=== PATIENT | male | born 1975 | race Caucasian/White ===

== ENCOUNTER 2017-06-01 13:54 | Emergency (ER) | payer SELFPAY ==
[2017-06-01 14:53] VITALS: BP 113/73
[2017-06-01 15:50] LABS: Basophils % (Auto) 0.7 % (0.0-1.8); Eosinophils % (Auto) 2.6 % (0.0-4.3); Hematocrit 43.5 % (35.5-45.6); Hemoglobin 14.9 gm/dl (11.8-15.2); Mean Corpuscular HGB Conc 34 % (32-34); Mean Corpuscular Hemoglobin 33 pg (28-32); Mean Corpuscular Volume 97 fl (84-94); Platelet Count 238 K/mm3 (140-440); Red Blood Count 4.46 M/mm3 (3.65-5.03); Red Cell Distribution Width 13.2 % (13.2-15.2); White Blood Count 9.6 K/mm3 (4.5-11.0)
[2017-06-01 16:01] LABS: Alanine Aminotransferase 14 units/L (7-56); Albumin 4.2 g/dL (3.9-5); Albumin/Globulin Ratio 1.6 %; Alkaline Phosphatase 55 units/L (35-129); Anion Gap 15 mmol/L; BUN/Creatinine Ratio 7.69; Blood Urea Nitrogen 10 mg/dL (9-20); Calcium 8.9 mg/dL (8.4-10.2); Carbon Dioxide 26 mmol/L (22-30); Chloride 106.7 mmol/L (98-107); Glucose 68 mg/dL (75-100); Lipase 19 units/L (13-60); Potassium 4.8 mmol/L (3.6-5.0); Sodium 143 mmol/L (137-145); Total Protein 6.8 g/dL (6.3-8.2)
[2017-06-01 18:14] LABS: Bilirubin,Urine NEG (Negative); Blood,Urine NEG (Negative); Ketones,Urine NEG (Negative); Leukocyte Esterase,Urine NEG (Negative); Mucus,Urine FEW /HPF; Nitrite,Urine NEG (Negative); Protein,Urine <15 mg/dL mg/dL (Negative); Urobilinogen,Urine < 2.0 mg/dL (<2.0)
--- NOTE | 2017-06-03 11:00 | ED Elopement Review ---
ED Pt Elopement review - Results review Lab results: Laboratory Tests 06/01/17 06/01/17 06/01/17 15:22 15:22 17:45 WBC 9.6 RBC 4.46 Hgb 14.9 Hct 43.5 MCV 97 H MCH 33 H MCHC 34 RDW 13.2 Plt Count 238 Lymph % (Auto) 31.1 [place] % (Auto) 10.0 H Eos % (Auto) 2.6 Baso % (Auto) 0.7 Lymph # 3.0 [place] # 1.0 H Eos # 0.3 Baso # 0.1 Seg Neutrophils % 55.6 Seg Neutrophils # 5.3 Sodium 143 Potassium 4.8 Chloride 106.7 Carbon Dioxide 26 Anion Gap 15 BUN 10 Creatinine 1.3 Estimated GFR > 60 BUN/Creatinine Ratio 7.69 Glucose 68 L Calcium 8.9 Total Bilirubin 0.70 AST 15 ALT 14 Alkaline Phosphatase 55 Total Protein 6.8 Albumin 4.2 Albumin/Globulin Ratio 1.6 Lipase 19 Urine Color Yellow Urine Turbidity Clear Urine pH 5.0 Ur Specific [place] 1.025 Urine Protein <15 mg/dl Urine Glucose (UA) Neg Urine Ketones Neg Urine Blood Neg Urine Nitrite Neg Urine Bilirubin Neg Urine Urobilinogen < 2.0 Ur Leukocyte Esterase Neg Urine WBC (Auto) 2.0 Urine RBC (Auto) 8.0 U Epithel Cells (Auto) 1.0 Urine Mucus Few - Call Back decision Pt Call Back Decision: No action required
== END 2017-06-01 22:50 | disposition left against medical advice (07) ==
LOC: ED 13:54
DX: R10.9 Unspecified abdominal pain (principal); R42 Dizziness and giddiness; Z53.21 Procedure and treatment not carried out due to patient leaving prior to being seen by health care provider
CPT/HCPCS: 36415; 80053; 81001; 83690; 85025